=== PATIENT | female | born 1990 | race Caucasian/White ===

== ENCOUNTER 2017-02-22 20:58 | Emergency (ER) | payer OTHER ==
[~2017-02-22] VITALS: Ht 160 cm; Wt 45.4 kg
[2017-02-23] MEDS ORDERED: ZANTAC300 MG PO (04:09)
[2017-02-23] MEDS ORDERED: PROBIOTIC & AC1 EACH PO (04:09)
== END 2017-02-23 06:20 | disposition home or self-care (01) ==
LOC: ER 20:58
DX: B34.9 Viral infection, unspecified (principal); K52.9 Noninfective gastroenteritis and colitis, unspecified; E86.0 Dehydration

== ENCOUNTER → 2018-07-10 | Emergency (ER) | payer OTHER ==
[~2018-07-10] VITALS: Ht 160 cm; Wt 47.6 kg
[~2018-07-10] MED LIST: MECLIZINE HCL25 MG PO; PROBIOTIC & AC1 EACH PO; ZANTAC300 MG PO
== END | disposition home or self-care (01) ==
LOC: ER 23:20
DX: S00.83XA Contusion of other part of head, initial encounter (principal); R42 Dizziness and giddiness; W22.8XXA Striking against or struck by other objects, initial encounter; Y93.89 Activity, other specified; Y92.26 Movie house or cinema as the place of occurrence of the external cause; Y99.8 Other external cause status

== ENCOUNTER → 2019-10-15 | Emergency (ER) | payer OTHER ==
[~2019-10-15] VITALS: Ht 162.6 cm; Wt 54.4 kg
== END | disposition home or self-care (01) ==
LOC: ER 16:10
DX: U07.1 COVID-19 (principal); M54.6 Pain in thoracic spine

== ENCOUNTER → 2020-02-01 | Emergency (ER) | payer OTHER | END | disposition left against medical advice (07) | LOC: ER 00:02 | DX: Z53.20 Procedure and treatment not carried out because of patient's decision for unspecified reasons (principal) ==

== ENCOUNTER 2020-07-07 23:42 | Emergency (ER) | payer OTHER ==
[~2020-07-07] VITALS: Ht 160 cm; Wt 49.9 kg
[2020-07-08] MEDS ORDERED: KETO10TA2 PO (03:09)
[2020-07-08] MEDS ORDERED: ORPHENADRINE C100 MG PO (03:09)
== END 2020-07-08 03:23 | disposition home or self-care (01) ==
LOC: ER 23:42
DX: S50.01XA Contusion of right elbow, initial encounter (principal); S60.211A Contusion of right wrist, initial encounter; W18.39XA Other fall on same level, initial encounter; Y93.89 Activity, other specified; Y92.098 Other place in other non-institutional residence as the place of occurrence of the external cause; Y99.8 Other external cause status

== ENCOUNTER 2023-11-16 23:09 | Emergency (ER) | payer OTHER ==
[~2023-11-16] VITALS: Ht 160 cm; Wt 56.2 kg
[~2023-11-16 23:09] MED LIST changes: +BENTYL10 MG/1 ML; +IBUPROFEN600 MG PO; +KETO10TA2 PO; +ORPHENADRINE C100 MG PO; +PROTONIX40 MG PO; +ZOVIRAX400 MG PO
[2023-11-16] MEDS ORDERED: PEPCID AC10 MG (23:20)
[2023-11-16] MEDS ORDERED: PROTONIX20 MG (23:20)
[2023-11-17] MEDS ORDERED: FAMOTIDINE/PF 20 MG/2 ML VIAL IV PUSH STA (00:40)
[2023-11-17] MEDS ORDERED: ACETAMINOPHEN 500 MG GEL..CAP PO STA (00:41)
[2023-11-17] MEDS ORDERED: 0.9 % SODIUM CHLORIDE 500 ML IV ONE (00:45)
[2023-11-17 01:16] LABS: HEMATOCRIT 37.5 % (36.0-45.00); HEMOGLOBIN 12.5 g/dL (12.0-15.00); MEAN CELL VOLUME 85.7 fL (80.00-100.00); MEAN CORPUSCULAR HEMOGLOBIN 28.6 pg (27.00-32.0); MEAN CORPUSCULAR HGB CONC 33.3 g/dl (32.0-36.0); PLATELET COUNT 260 K/uL (150-450); RED BLOOD COUNT 4.38 M/uL (4.00-6.00); RED CELL DISTRIBUTION WIDTH 13.5 % (11.5-14.5)
[2023-11-17 01:36] LABS: URINE APPEARANCE Clear; URINE BILIRRUBIN Negative (NEGATIVE); URINE BLOOD Negative; URINE COLOR Yellow; URINE GLUCOSE Negative (NEGATIVE); URINE KETONE Negative (NEGATIVE); URINE LEUKOCYTE Moderate; URINE NITRATE Negative; URINE PROTEIN Negative (NEGATIVE); URINE UROBILINOGEN 0.2 E.U./dl
[2023-11-17 01:38] LABS: ALBUMIN 3.5 gm/dL (3.4-5.0); BILIRUBIN TOTAL 0.2 mg/dL (0.3-1.2); CALCIUM 8.8 mg/dL (8.5-10.1); CREATININE SERUM 0.74 mg/dL (0.55-1.02); GFR 91.54; GLOBULINA 4.5 G/DL (2.4-3.5); POTASSIUM 3.67 mEq/L (3.5-5.1)
[2023-11-17 01:40] LABS: URINE BACTERIA 681.6 uL (0.0-1933); URINE EPITHELIAL CELLS 40.4 uL (0.0-38.8); URINE RBC 14.5 uL (0.0-20.8); URINE WBC 79.2 uL (0.0-23.2)
[2023-11-17 01:41] LABS: URINE CAST 0.15 uL (0.0-1.40)
[2023-11-17] MEDS ORDERED: DOLOGESIC 500-1 EACH PO (02:52)
== END 2023-11-17 02:57 ==
LOC: ER → EDBD 11-17 00:02 → ER 11-17 00:02
PROVIDERS: General Practice
DX: B34.9 Viral infection, unspecified (principal); R10.13 Epigastric pain; R50.9 Fever, unspecified; R53.81 Other malaise; Z20.822 Contact with and (suspected) exposure to COVID-19; Z91.013 Allergy to seafood